=== PATIENT | female | born 1960 | race Caucasian/White ===

== ENCOUNTER 2021-03-19 20:15 | Outpatient (REF) | payer MEDICAID, SELFPAY ==
[2021-03-19 15:32] LABS: Hemoglobin A1C 4.9 % (<5.7)
[2021-03-19 15:52] LABS: Calculated LDL 167 mg/dL (<100); Cholesterol 256 mg/dL (<200); HDL Cholesterol 65 mg/dL (40-60); Triglyceride 123 mg/dL (<150)
== END 2021-03-19 20:16 | disposition home or self-care (01) ==
LOC: NCHCN 20:15
PROVIDERS: PCP Nurse Practitioner Family; Visit Provider Family Medicine
DX: Z13.1 Encounter for screening for diabetes mellitus (principal); Z13.220 Encounter for screening for lipoid disorders
CPT/HCPCS: 80061; 83036

== ENCOUNTER 2023-01-07 14:10 | Outpatient (REF) | payer MEDICAID, SELFPAY ==
[2023-01-07 21:07] LABS: Abs Immature Grans 0.03 10^3/uL (0.0-0.06); Absolute Basophil Count 0.06 10^3/uL (0.0-0.2); Absolute Eosinophil Count 0.12 10^3/uL (0.0-0.7); Absolute Monocyte Count 0.71 10^3/uL (0.1-0.8); Absolute Neutrophil Count 7.93 10^3/uL (1.2-6.7); Basophils % 0.5; HCT 48.2 % (36.0-46.0); HGB 16.5 g/dL (11.2-15.7); Immature Grans % 0.3; Lymphocytes % 23.2; MCHC 34.2 % (32.0-36.0); MCV 99 fL (80-95); MPV 9.8 fL (8.0-11.0); Monocytes % 6.2; Neutrophils % 68.8; Platelet Count 262 10^3/uL (130-400); RBC 4.86 10^6/uL (3.93-5.22); RDW 12.4 % (11.7-14.6); RDW-SD 45.3 fL; WBC 11.53 10^3/uL (4.4-10.8)
[2023-01-07 21:08] LABS: Absolute Lymphocyte Count 2.67 10^3/uL (1.2-3.4)
[2023-01-07 21:28] LABS: ALT 38 U/L (14-59); AST 40 U/L (15-37); Albumin 4.6 g/dL (3.4-5.0); Alkaline Phosphatase 91 U/L (46-116); Anion Gap 11.4 mmol/L (3-11); BUN 8 mg/dL (7-18); Bilirubin, Total 0.6 mg/dL (0.2-1.0); CO2 25.6 mmol/L (21.0-32.0); CREATININE 0.5 mg/dL (0.55-1.02); Calcium 9.9 mg/dL (8.5-10.1); Chloride 105 mmol/L (98-107); Estimated GFR 106.64 (mL/min/1.73m2); Glucose 80 mg/dL (74-106); Potassium 4.3 mmol/L (3.5-5.1); Sodium 142 mmol/L (136-145); Total Protein 7.7 g/dL (6.4-8.2)
== END 2023-01-07 14:11 | disposition home or self-care (01) ==
LOC: NCHCN 14:10
PROVIDERS: PCP Nurse Practitioner Family; Visit Provider Family Medicine
DX: R14.0 Abdominal distension (gaseous) (principal)
CPT/HCPCS: 80053; 85025

== ENCOUNTER 2023-03-15 18:25 | Outpatient (REF) | payer MEDICAID, SELFPAY | END 2023-03-15 18:26 | disposition home or self-care (01) | LOC: NCHCN 18:25 | PROVIDERS: PCP Nurse Practitioner Family; Visit Provider Family Medicine | DX: R39.9 Unspecified symptoms and signs involving the genitourinary system (principal) | CPT/HCPCS: 87086 ==